=== PATIENT | female | born 1945 | race Caucasian/White ===

== ENCOUNTER 2023-08-27 10:11 | Outpatient (AMB) | payer MEDICARE, SELFPAY ==
[2023-08-27 10:44] VITALS: BP 162/84; PULSE 82; O2SAT 98; BMI 26.8
--- NOTE | 2023-08-27 10:44 | HO.NEPHOV ---
HPI HPI Comments History of Present Illness Details I had the delight of seeing Karen in the office for her chronic kidney disease, hypertension proteinuria. She was accompanied by her . She is history of left renal cell cancer and had undergone cryoablation. She follows up with the Dr Iyer and undergoes follow-up MRIs. She has no hematuria, night sweats, weight loss. Her serum creatinine had been fluctuating between 1.3-1.4. She has no edema. He has no orthostatic symptoms. She does not take any nonsteroidal anti-inflammatories. She is on diltiazem as well as losartan. There were no new active complaints at the time of this office visit. [facility] Medical History (Updated 08/27/23 @ 22:05 by Erick Torrez MD) Type 2 diabetes mellitus Renal mass Proteinuria Localized edema Cancer of kidney Hypertension Hyperlipidemia Gastroesophageal reflux disease Depressive disorder Atrial fibrillation CKD (chronic kidney disease) Surgical History History of hysterectomy Family History Mother Cancer Hypertension Father Hypertension Stroke Heart disease Vital Signs 08/27/23 10:44 Height 5 ft 1 in Weight 142 lb BMI 26.8 BP 162/84 H Blood Pressure Location Lt brachial Position Sitting Pulse 82 Pulse Source Pulse Oximeter Pulse Oximetry (%) 98 Oxygen Delivery Method Room Air Physical Exam Vital Signs: Last Vital Signs Pulse 82 08/27/23 10:44 BP 162/84 H 08/27/23 10:44 Pulse Ox 98 08/27/23 10:44 Oxygen Delivery Method Room Air 08/27/23 10:44 BMI result Body Mass Index 26.8 Const General: comfortable and no acute distress Orientation/consciousness: patient oriented x3 HEENT Head: Yes normocephalic Mouth: Normal oral and palatal mucosa present Eyes EOM: EOMs intact bilaterally Neck Neck: Yes supple Resp Auscultation: clear to auscultation bilaterally Cardio Jugular venous distension: no JVD Rate: regular rate GI Palpation (GI): Soft to palpation Auscultation: normal bowel sounds General: Yes no CVA tenderness Back/Spine/Pelvis Back: no CVA tenderness Skin General skin exam: no rashes or lesions noted Neuro General: patient oriented x3 and moves all extremities Extrem General: Yes no pedal edema Assessment & Plan Assessment & Plan (1) Hypertension: Code(s): I10 - Essential (primary) hypertension Qualifiers: Hypertension type: primary hypertension Qualified Code(s): I10 - Essential (primary) hypertension (2) CKD (chronic kidney disease) stage 3, GFR 30-59 ml/min: Code(s): N18.30 - Chronic kidney disease, stage 3 unspecified Qualifiers: Chronic kidney disease stage 3 subtype: stage 3a (GFR 45-59) Qualified Code(s): N18.31 - Chronic kidney disease, stage 3a (3) Proteinuria: Code(s): R80.9 - Proteinuria, unspecified Qualifiers: Proteinuria type: other Qualified Code(s): R80.8 - Other proteinuria Plan Karen has stage III CKD with proteinuria. Her blood pressure is at goal. She is on angiotensin receptor meri and diltiazem. Her serum creatinine had been stable between 1.3-1.4. She does not take any nonsteroidal anti-inflammatories. She has no orthostatic symptoms. She maintains good hydration. She has history of left renal cell cancer and had undergone cryoablation. She follows up with her urologist and undergoes imaging studies. She avoids nonsteroidal anti-inflammatories and maintains good hydration. I did not make any medication changes today. I ordered follow-up lab work. I answered all her and her 's questions. Follow-up appointment given. Orders: Orders Creatinine Today I10 - Essential (primary) hypertension, N18.2 - Chronic kidney disease, stage 2 (mild) UA and rflx microscopic Today I10 - Essential (primary) hypertension, N18.2 - Chronic kidney disease, stage 2 (mild) Protein Creatinine Ratio, Ur Today I10 - Essential (primary) hypertension, N18.2 - Chronic kidney disease, stage 2 (mild) Blood Urea Nitrogen Today I10 - Essential (primary) hypertension, N18.2 - Chronic kidney disease, stage 2 (mild) Electrolytes Today I10 - Essential (primary) hypertension, N18.2 - Chronic kidney disease, stage 2 (mild) Coding Level of Care Code Est Pt Level 4 (22068) Diagnoses Primary hypertension I10 Hypertension type: primary hypertension Stage 3a chronic kidney disease N18.31 Chronic kidney disease stage 3 subtype: stage 3a (GFR 45-59) Other proteinuria R80.8 Proteinuria type: other Results Reviewed Nephrology Results: No Data to Display
== END 2023-08-27 11:14 | disposition home or self-care (01) ==
PROVIDERS: PCP Internal Medicine; Visit Provider Internal Medicine Nephrology
DX: I10 Essential (primary) hypertension (principal); N18.31 Chronic kidney disease, stage 3a; R80.8 Other proteinuria
CPT/HCPCS: 99214

== ENCOUNTER → 2023-08-27 10:11 | Outpatient (BNVA) | payer MEDICARE, SELFPAY | PROVIDERS: PCP Internal Medicine; Visit Provider Internal Medicine Nephrology | DX: I12.9 Hypertensive chronic kidney disease with stage 1 through stage 4 chronic kidney disease, or unspecified chronic kidney disease (principal); R80.9 Proteinuria, unspecified; N18.31 Chronic kidney disease, stage 3a | CPT/HCPCS: 99212 ==